=== PATIENT | male | born 1945 | race Caucasian/White ===

== ENCOUNTER 2022-04-11 17:52 | Inpatient (IN) | payer MEDICARE, OTHER ==
[~2022-04-11] VITALS: Ht 167.6 cm; Wt 92.1 kg
[2022-04-11 20:00] VITALS: BP 115/63
[2022-04-11] MEDS ORDERED: HYDROCODONE/APAP 5/325MG TABLET PO PRN (21:00)
[2022-04-11] MEDS ORDERED: TEMAZEPAM 15 MG CAPSULE PO PRN (21:00)
[2022-04-11] MEDS ORDERED: MAG HYDROX/AL HYDROX/SIMETH 30 ML UDC PO PRN (21:00)
[2022-04-11] MEDS ORDERED: ACETAMINOPHEN 325 MG TABLET PO PRN (21:00)
[2022-04-11] MEDS ORDERED: Z GUARD REMEDY 4 OZ OINT TP PRN (21:00)
[2022-04-11] MEDS ORDERED: ONDANSETRON HCL/PF 4 MG/2 ML VIAL IVP PRN (21:00)
[2022-04-12] VITALS: BP 99/66
[2022-04-12] MEDS: IV NS 0.9% 1,000 ML IV PRN (00:09)
[2022-04-12 05:19] VITALS: BP 102/60
[2022-04-12 06:01] LABS: BASOPHILS % (AUTO) 0.3 % (0.0-2.0); HEMATOCRIT 29 % (39-51); HEMOGLOBIN 9.7 g/dL (13.5-17.5); LYMPHOCYTES # (AUTO) 0.4 K/uL (0.8-4.8); LYMPHOCYTES % (AUTO) 7.4 % (20.0-44.0); MEAN CORPUSCULAR HGB CONC 34 g/dl (31.0-36.0); MEAN CORPUSCULAR VOLUME 90 fL (80-96); MONOCYTES # (AUTO) 0.2 K/uL (0.1-1.30); NEUTROPHILS # (AUTO) 4.8 K/uL (1.8-8.9); NEUTROPHILS % (AUTO) 83.3 % (43.0-81.0); PLATELET COUNT (AUTO) 168 K/uL (150-450); RED BLOOD CELL COUNT(AUTO) 3.19 MIL/uL (4.5-6.0); WHITE BLOOD COUNT (AUTO) 5.8 K/uL (4.3-11.0)
[2022-04-12 07:00] LABS: CALCIUM, SERUM 7.8 mg/dL (8.5-10.1); CHLORIDE 94 mmol/L (98-107); CREATININE 2.1 mg/dL (0.6-1.3); GLUCOSE 122 mg/dL (74-106); MAGNESIUM 2.2 mg/dL (1.8-2.4); PHOSPHORUS 2.9 mg/dL (2.5-4.9); SODIUM SERUM 137 mmol/L (136-145); UREA NITROGEN, BLOOD 33 mg/dL (7-18)
[2022-04-12] MEDS: PANTOPRAZOLE 40 MG TABLET.DR PO SCH (07:07)
[2022-04-12 07:09] LABS: CHOLESTEROL 151 mg/dL (<200); HDL CHOLESTEROL 39 mg/dL (40-60); LDL 87 mg/dL (0-99); THYROID STIMULATING HORMONE 0.464 uIU/mL (0.358-3.74); TRIGLYCERIDES 132 mg/dL (30-150)
[2022-04-12 07:12] LABS: CARBON DIOXIDE 42 mmol/L (21-32); POTASSIUM 2.6 mmol/L (3.5-5.1)
[2022-04-12 08:00] VITALS: BP 109/62
[2022-04-12] MEDS ORDERED: OMEP20CA15 PO (08:18)
[2022-04-12] MEDS ORDERED: CARV3.122 PO (08:18)
[2022-04-12] MEDS ORDERED: MONT10TA22 PO (08:18)
[2022-04-12] MEDS ORDERED: UMEC62.5 INH (08:18)
[2022-04-12] MEDS ORDERED: TAMS-12 PO (08:18)
[2022-04-12] MEDS ORDERED: GABA300C PO (08:18)
[2022-04-12] MEDS ORDERED: FURO40TA5 PO (08:18)
[2022-04-12] MEDS ORDERED: POTA10TA PO (08:18)
[2022-04-12] MEDS: POTASSIUM CHLORIDE 20 MEQ TAB.PRT.SR PO SCH ×2 (08:57→11:04)
[2022-04-12] MEDS: HYDROCODONE/APAP 10/325MG TABLET PO PRN ×2 (09:26→21:22)
[2022-04-12 12:00] VITALS: BP 103/51
[2022-04-12] MEDS: GABAPENTIN 300 MG CAPSULE PO SCH ×2 (12:16→17:24)
[2022-04-12 16:00] VITALS: BP 100/56
[2022-04-12] MEDS: CARVEDILOL 3.125 MG TABLET PO SCH (17:00)
[2022-04-12 21:11] LABS: BILIRUBIN,URINE NEGATIVE (NEGATIVE); COLOR,URINE YELLOW (YELLOW); LEUKOCYTE ESTERASE ,URINE NEGATIVE (NEGATIVE); NITRITE, URINE NEGATIVE (NEGATIVE); PH,URINE 7.5 (5.0-8.0); PROTEIN,URINE 30 mg/dl (NEGATIVE); UGLUCOSE 100 MG/DL mg/dL (NEGATIVE)
[2022-04-12 21:28] LABS: BACTERIA,URINE Rare /HPF (None Seen); RBC,URINE 0-2 /HPF (0-2); SQUAMOUS EPITHELIAL CELL,UR Few /HPF (None Seen)
[2022-04-12 21:30] LABS: CREATININE, URINE 74.6 MG/DL (30.0-125.0)
[2022-04-13] MEDS: IV NS 0.9% 1,000 ML IV PRN (06:23)
[2022-04-13] MEDS ORDERED: PANTOPRAZOLE 40 MG TABLET.DR PO SCH (07:30)
[2022-04-13 07:46] LABS: BASOPHILS % (AUTO) 0.4 % (0.0-2.0); EOSINOPHILS % (AUTO) 6.6 % (0.0-6.0); HEMATOCRIT 31 % (39-51); HEMOGLOBIN 10.1 g/dL (13.5-17.5); LYMPHOCYTES # (AUTO) 0.5 K/uL (0.8-4.8); LYMPHOCYTES % (AUTO) 11.3 % (20.0-44.0); MEAN CORPUSCULAR HGB CONC 33 g/dl (31.0-36.0); MEAN CORPUSCULAR VOLUME 92 fL (80-96); MONOCYTES # (AUTO) 0.3 K/uL (0.1-1.30); MONOCYTES % (AUTO) 5.5 % (2.0-12.0); NEUTROPHILS # (AUTO) 3.5 K/uL (1.8-8.9); NEUTROPHILS % (AUTO) 76.2 % (43.0-81.0); PLATELET COUNT (AUTO) 152 K/uL (150-450); RED BLOOD CELL COUNT(AUTO) 3.36 MIL/uL (4.5-6.0); WHITE BLOOD COUNT (AUTO) 4.6 K/uL (4.3-11.0)
[2022-04-13] MEDS: PANTOPRAZOLE 40 MG TABLET.DR PO SCH (08:33)
[2022-04-13] MEDS: TAMSULOSIN 0.4 MG CAP.SR.24H PO SCH (08:33)
[2022-04-13] MEDS: GABAPENTIN 300 MG CAPSULE PO SCH ×3 (08:33→16:50)
[2022-04-13] MEDS: CARVEDILOL 3.125 MG TABLET PO SCH ×2 (08:33→16:50)
[2022-04-13] MEDS: MONTELUKAST SODIUM (10MG) 10 MG TABLET PO SCH (08:33)
[2022-04-13 08:35] LABS: CALCIUM, SERUM 7.7 mg/dL (8.5-10.1); CARBON DIOXIDE 39 mmol/L (21-32); CHLORIDE 97 mmol/L (98-107); CREATININE 1.9 mg/dL (0.6-1.3); GLUCOSE 106 mg/dL (74-106); SODIUM SERUM 139 mmol/L (136-145); UREA NITROGEN, BLOOD 29 mg/dL (7-18)
[2022-04-13 08:49] LABS: POTASSIUM 2.7 mmol/L (3.5-5.1)
[2022-04-13] MEDS: POTASSIUM CHLORIDE 20 MEQ TAB.PRT.SR PO SCH ×3 (11:03→15:15)
[2022-04-13] MEDS: MAGNESIUM HYDROXIDE 30 ML UDC PO PRN (13:43)
[2022-04-13] MEDS ORDERED: POTASSIUM CHLORIDE 20 MEQ POWDER PACKET PO ONE (15:00)
[2022-04-13] MEDS: APIXABAN 2.5 MG TABLET PO SCH (16:53)
[2022-04-13 20:40] VITALS: BP 97/57
[2022-04-14] MEDS: IV NS 0.9% 1,000 ML IV PRN ×2 (00:54→17:32)
[2022-04-14] MEDS: MAGNESIUM HYDROXIDE 30 ML UDC PO PRN (06:53)
[2022-04-14 07:27] LABS: CALCIUM, SERUM 7.9 mg/dL (8.5-10.1); CARBON DIOXIDE 33 mmol/L (21-32); CHLORIDE 100 mmol/L (98-107); CREATININE 1.7 mg/dL (0.6-1.3); GLUCOSE 118 mg/dL (74-106); MAGNESIUM 1.9 mg/dL (1.8-2.4); POTASSIUM 3.6 mmol/L (3.5-5.1); SODIUM SERUM 139 mmol/L (136-145); UREA NITROGEN, BLOOD 23 mg/dL (7-18)
[2022-04-14 08:00] VITALS: BP 124/72
[2022-04-14] MEDS: PANTOPRAZOLE 40 MG TABLET.DR PO SCH (08:28)
[2022-04-14] MEDS: GABAPENTIN 300 MG CAPSULE PO SCH ×3 (08:31→17:25)
[2022-04-14] MEDS: MONTELUKAST SODIUM (10MG) 10 MG TABLET PO SCH (08:31)
[2022-04-14] MEDS: TAMSULOSIN 0.4 MG CAP.SR.24H PO SCH (08:31)
[2022-04-14] MEDS: CARVEDILOL 3.125 MG TABLET PO SCH ×2 (08:31→17:25)
[2022-04-14] MEDS: APIXABAN 2.5 MG TABLET PO SCH ×2 (08:32→17:25)
[2022-04-14] MEDS: INCRUSE ELLIPTA INH SCH (08:36)
[2022-04-14] MEDS ORDERED: NA PHOS,M-B/NA PHOS,DI-BA 1 EA ENEMA RC ONE (11:00)
[2022-04-14 16:00] VITALS: BP 166/62
[2022-04-14 20:00] VITALS: BP 114/60
[2022-04-14 20:46] VITALS: BP 114/60
[2022-04-15] MEDS: IV NS 0.9% 1,000 ML IV PRN ×2 (04:32→18:20)
[2022-04-15 07:54] LABS: CALCIUM, SERUM 8.4 mg/dL (8.5-10.1); CARBON DIOXIDE 32 mmol/L (21-32); CHLORIDE 102 mmol/L (98-107); CREATININE 1.5 mg/dL (0.6-1.3); GLUCOSE 135 mg/dL (74-106); POTASSIUM 3.5 mmol/L (3.5-5.1); SODIUM SERUM 137 mmol/L (136-145); UREA NITROGEN, BLOOD 19 mg/dL (7-18)
[2022-04-15] MEDS: PANTOPRAZOLE 40 MG TABLET.DR PO SCH (07:54)
[2022-04-15 08:00] VITALS: BP 116/61
[2022-04-15] MEDS: APIXABAN 2.5 MG TABLET PO SCH ×2 (08:08→16:21)
[2022-04-15] MEDS: TAMSULOSIN 0.4 MG CAP.SR.24H PO SCH (08:10)
[2022-04-15] MEDS: CARVEDILOL 3.125 MG TABLET PO SCH ×2 (08:10→16:19)
[2022-04-15] MEDS: MONTELUKAST SODIUM (10MG) 10 MG TABLET PO SCH (08:10)
[2022-04-15] MEDS: GABAPENTIN 300 MG CAPSULE PO SCH ×3 (08:10→16:18)
[2022-04-15] MEDS: INCRUSE ELLIPTA INH SCH (08:11)
[2022-04-15 18:07] VITALS: BP 120/77
[2022-04-15 20:00] VITALS: BP 107/57
[2022-04-16] MEDS ORDERED: TRAZ-257 PO (00:12)
[2022-04-16 07:21] LABS: CALCIUM, SERUM 8.2 mg/dL (8.5-10.1); CARBON DIOXIDE 32 mmol/L (21-32); CHLORIDE 105 mmol/L (98-107); CREATININE 1.6 mg/dL (0.6-1.3); GLUCOSE 130 mg/dL (74-106); POTASSIUM 3.3 mmol/L (3.5-5.1); SODIUM SERUM 140 mmol/L (136-145); UREA NITROGEN, BLOOD 19 mg/dL (7-18)
[2022-04-16 08:00] VITALS: BP 102/59
[2022-04-16 08:01] VITALS: BP 102/59
[2022-04-16] MEDS: GABAPENTIN 300 MG CAPSULE PO SCH ×2 (09:09→13:00)
[2022-04-16] MEDS: TAMSULOSIN 0.4 MG CAP.SR.24H PO SCH (09:10)
[2022-04-16 09:11] VITALS: BP 102/59
[2022-04-16] MEDS: MONTELUKAST SODIUM (10MG) 10 MG TABLET PO SCH (09:11)
[2022-04-16] MEDS: PANTOPRAZOLE 40 MG TABLET.DR PO SCH (09:11)
[2022-04-16] MEDS: CARVEDILOL 3.125 MG TABLET PO SCH (09:11)
[2022-04-16] MEDS: INCRUSE ELLIPTA INH SCH (09:12)
[2022-04-16] MEDS: APIXABAN 2.5 MG TABLET PO SCH (09:13)
[2022-04-16] MEDS ORDERED: POTASSIUM CHLORIDE 10 MEQ TABLET.SA PO SCH (11:00)
== END 2022-04-16 13:15 | DRG 683 ==
LOC: TELE 17:52 → MED 04-12 10:05
PROVIDERS: ADMIT Nurse Practitioner Acute Care
DX: N17.0 Acute kidney failure with tubular necrosis (principal); E87.3 Alkalosis; E87.6 Hypokalemia; M25.461 Effusion, right knee; I11.0 Hypertensive heart disease with heart failure; I50.9 Heart failure, unspecified; M17.11 Unilateral primary osteoarthritis, right knee; S90.111A Contusion of right great toe without damage to nail, initial encounter; W18.30XA Fall on same level, unspecified, initial encounter; Y93.9 Activity, unspecified; Y92.89 Other specified places as the place of occurrence of the external cause; E78.5 Hyperlipidemia, unspecified; J44.9 Chronic obstructive pulmonary disease, unspecified; Z86.73 Personal history of transient ischemic attack (TIA), and cerebral infarction without residual deficits; Z87.891 Personal history of nicotine dependence
CPT/HCPCS: 36415; 71045-TC; 73630-TC; 76770-TC; 80048-TC; 80061-TC; 81001; 82570-TC; 83735-TC; 83880; 84100-TC; 84300-TC; 84443-TC; 85025-TC; 87081-TC; 93307-TC; 94799-TC; 97116-TC; 97530-TC; G0378; J7030